=== PATIENT | male | born 1965 | race American Indian/Alaskan Native ===

== ENCOUNTER 2021-12-30 13:02 | Emergency (ER) | payer MEDICAID, OTHER ==
[2021-12-30 14:57] LABS: ANION GAP 10.1 mEq/L (7-13); CHLORIDE,CL 103 mmol/L (98-107); SODIUM,NA 138 mmol/L (136-145)
== END 2021-12-30 16:59 | disposition home or self-care (01) ==
LOC: DL.ED 13:02
DX: K74.60 Unspecified cirrhosis of liver (principal); N28.89 Other specified disorders of kidney and ureter; R16.1 Splenomegaly, not elsewhere classified; R31.0 Gross hematuria; R59.0 Localized enlarged lymph nodes
CPT/HCPCS: 36415; 74176; 80053; 81001; 85025; 99284-25